=== PATIENT | female | born 1960 | race Caucasian/White ===

== ENCOUNTER → 2016-07-03 | Outpatient (CLI) | payer BC ==
--- NOTE | 2016-07-03 12:38 | CR ---
EXAMINATION: Right knee HISTORY: Osteoarthritis COMPARISON: 04/19/2016 TECHNIQUE: 4 views FINDINGS: There is moderate joint space narrowing within the medial compartment. Mild osteophyte for mation is noted. No fracture or acute osseous abnormality. Likely a trace suprapatellar joint fluid. Degenerative and postoperative changes are noted within the left knee. IMPRESSION: Mild to moderate degenerative changes of the right knee with moderate joint space narrow ing within the medial compartment.
--- NOTE | 2016-07-03 12:57 | CR ---
EXAMINATION: Left knee HISTORY: Pain COMPARISON: 07/03/2016 TECHNIQUE: 2 views FINDINGS/IMPRESSION: Screw and plate hardware fixates the tibial plateau. No fracture or acute osseo us abnormality. No joint effusion or joint space narrowing within the patellofemoral compartment.
== END ==
LOC: MW.CHORTHO 07:34
PROVIDERS: ATTEND Physician Assistant
DX: M25.562 Pain in left knee (principal); M17.11 Unilateral primary osteoarthritis, right knee; Z96.7 Presence of other bone and tendon implants
CPT/HCPCS: 73560-26-LT; 73560-LT; 73564-26-RT; 73564-RT

== ENCOUNTER 2018-01-24 14:08 | Emergency (ER) | payer OTHER, BC ==
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
--- NOTE | 2018-01-24 15:25 | CT ---
EXAMINATION: Non contrast CT head. Coronal and sagittal reformats. HISTORY: Pain FINDINGS: No evidence of intra or extra axial hemorrhage, mass, midline shift, hydrocephalus or edema. No hyp oattenuation changes in the major vascular territories to suggest acute infarct. No abnormal intracranial calcifications are detected. No evidence of substantial vascular calcificat ions. Mucous retention cyst within the right maxillary sinus. Orbits and globes are symmetric. Mastoid air cells and middle ears are clear. Pituitary fossa appears unremarkable. Calvarium is intact. No evidence of skull fracture. IMPRESSION: No acute intracranial findings.
--- NOTE | 2018-01-24 15:39 | CT ---
EXAMINATION: CT cervical spine HISTORY: Pain COMPARISON: None TECHNIQUE: Axial CT images obtained through the cervical spine without contrast. Coronal and sagittal reconstructions obtained. FINDINGS: Cervical spinal alignment is normal. The vertebral body heights and disc spaces appear well -maintained. There is no fracture or acute osseous subglottic. Bone mineralization is normal. Minimal marginal osteophytes are noted. Lung apices are clear. Paravertebral soft tissues appear normal. IMPRESSION: 1. Mild degenerative changes without acute findings.
[2018-01-24 16:37] VITALS: BP 137/71
== END 2018-01-24 16:37 | disposition home or self-care (01) ==
LOC: MW.ED 14:08
DX: S06.0X0A Concussion without loss of consciousness, initial encounter (principal); S13.4XXA Sprain of ligaments of cervical spine, initial encounter; S50.12XA Contusion of left forearm, initial encounter; Z88.1 Allergy status to other antibiotic agents; Z79.82 Long term (current) use of aspirin; V53.5XXA Driver of pick-up truck or van injured in collision with car, pick-up truck or van in traffic accident, initial encounter
CPT/HCPCS: 70450; 70450-26; 72125; 72125-26; 99283; 99283-25

== ENCOUNTER 2021-10-21 07:57 | Emergency (ER) | payer OTHER ==
[2021-10-21] MEDS ORDERED: Sodium Chloride 0.9% 1,000 ML IV ONE (08:14)
[2021-10-21 08:57] LABS: CARBON DIOXIDE,CO2 23.1 mmol/L (21.0-32.0); POTASSIUM,K 3.5 mmol/L (3.5-5.1)
[2021-10-21 11:29] VITALS: BP 110/67; PULSE 80
[2021-10-21] MEDS ORDERED: Iopamidol 755 MG/ML 500 ML Multipack Bottle IVPUSH ONE (18:33)
== END 2021-10-21 11:29 | disposition home or self-care (01) ==
LOC: MW.ED 07:57
DX: R00.2 Palpitations (principal); R06.02 Shortness of breath; R53.83 Other fatigue; Z20.822 Contact with and (suspected) exposure to COVID-19; Z88.1 Allergy status to other antibiotic agents
CPT/HCPCS: 36415; 71045; 71275; 80053; 83735; 84443; 84484; 85025; 85379; 87635; 93005; 99285; J7030; Q9967; 93010; 99284; U0002

== ENCOUNTER 2023-11-27 13:48 | Emergency (ER) | payer OTHER ==
[2023-11-27 14:20] VITALS: BP 124/73; PULSE 72
[2023-11-27] MEDS: Lidocaine 1% 5 ML VIAL INJECT STA (16:04)
[2023-11-27] MEDS: Diphtheria,Pertussis(Acell),Tetanus Vaccine 0.5 ML Syringe IM ONE (16:04)
== END 2023-11-27 16:31 | disposition home or self-care (01) ==
LOC: MW.ED 13:48
DX: S61.210A Laceration without foreign body of right index finger without damage to nail, initial encounter (principal); Z23 Encounter for immunization; Z88.1 Allergy status to other antibiotic agents; Z75.8 Other problems related to medical facilities and other health care; W26.8XXA Contact with other sharp object(s), not elsewhere classified, initial encounter
CPT/HCPCS: 12001; 90471; 90715; 99282-25; 99283; J3490

== ENCOUNTER 2024-11-29 14:32 | Emergency (ER) | payer OTHER ==
[2024-11-29] MEDS: Iopamidol 755 MG/ML 500 ML Multipack Bottle IVPUSH STA (15:04)
[2024-11-29] MEDS: Ondansetron 4 MG/2 ML SDV IVPUSH ONE (15:12)
[2024-11-29] MEDS: Ketorolac 30 MG/ML SDV IVPUSH ONE (15:14)
[2024-11-29 15:23] LABS: BASOPHILS ABSOLUTE AUTO 0.02 K/uL (0.00-0.20); BASOPHILS PERCENT AUTO 0.2 % (0.0-1.0); EOSINOPHILS ABSOLUTE AUTO 0.05 K/uL (0.00-0.45); EOSINOPHILS PERCENT AUTO 0.5 % (0.0-6.0); IMMATURE GRAN ABSOLUTE AUTO 0.03 K/uL (0.00-0.05); IMMATURE GRAN PERCENT AUTO 0.3 % (0.0-0.4); LYMPHOCYTES ABSOLUTE AUTO 1.71 K/uL (1.00-4.80); LYMPHOCYTES PERCENT AUTO 18.2 % (24.0-44.0); MEAN PLATELET VOLUME 10.1 fL (9.4-12.3); MONOCYTES ABSOLUTE AUTO 0.73 K/uL (0.00-0.80); MONOCYTES PERCENT AUTO 7.8 % (0.0-8.0); NEUTROPHILS ABSOLUTE AUTO 6.85 K/uL (1.80-7.70); NEUTROPHILS PERCENT AUTO 73.0 % (41.0-71.0); NRBC ABSOLUTE 0.00 K/uL (0.00-0.02); NRBC PERCENT 0.0 /100WBC (0.0-0.2); PLATELET COUNT,PLT 228 K/uL (150-400); RED BLOOD CELL COUNT 4.00 M/uL (4.10-5.30); WHITE BLOOD CELL COUNT,WBC 9.39 K/uL (3.9-11.3)
[2024-11-29 15:36] LABS: INR 1.09 (0.86-1.11)
[2024-11-29 15:42] LABS: A/G RATIO 1.1 (0.9-1.6); ALANINE AMINOTRANSFERASE,ALT 6.0 IU/L (14-63); ASPARTATE AMNIOTRANSFERASE,AST 5.0 IU/L (15-37); BILIRUBIN TOTAL 0.5 mg/dL (0.2-1.0); BLOOD UREA NITROGEN,BUN 18.0 mg/dL (7.0-18.0); CARBON DIOXIDE,CO2 27.2 mmol/L (21.0-32.0); CHLORIDE,CL 106.0 mmol/L (98-107); CREATININE 0.8 mg/dL (0.6-1.0); EST CRCL DRUG DOSING (CG) 60.31 mL/min; GLUCOSE RANDOM 105.0 mg/dL (74-106); POTASSIUM,K 3.6 mmol/L (3.5-5.1); PROTEIN TOTAL,TP 6.2 g/dL (6.4-8.2); SODIUM,NA 142.0 mmol/L (136-145)
[2024-11-29 15:45] LABS: ESTIMATED GFR 83.0 mL/min (>60)
[2024-11-29 16:09] VITALS: BP 133/77; PULSE 73
== END 2024-11-29 16:08 | disposition home or self-care (01) ==
LOC: MW.ED 14:32
DX: S42.022A Displaced fracture of shaft of left clavicle, initial encounter for closed fracture (principal); S70.11XA Contusion of right thigh, initial encounter; S29.8XXA Other specified injuries of thorax, initial encounter; Z88.1 Allergy status to other antibiotic agents; Z79.899 Other long term (current) drug therapy; V80.010A Animal-rider injured by fall from or being thrown from horse in noncollision accident, initial encounter; Y93.52 Activity, horseback riding
CPT/HCPCS: 36415; 71275; 71275-26; 73000-26-LT; 73000-LT; 74177; 74177-26; 80053; 83690; 85025; 85610; 96374; 96375; 99283; 99284-25; A9270-GY; J1171; J1885; J2405; Q9967